=== PATIENT | female | born 1980 | race Two or more races ===

== ENCOUNTER → 2021-12-30 | Outpatient (CLI) | payer OTHER ==
[~2021-12-30] MED LIST: IOHEXOL 300 MG/ML 75 ML VIAL. IV ONE; IOHEXOL 300 MG/ML 75 ML VIAL. ONE
--- NOTE | 2021-12-30 09:42 | RAD ---
EXAMINATION: CT ABDOMEN+PELVIS WO+W (CT ABDOMEN/PELVIS WITHOUT AND WITH IV CONTRAST, INCLUDING EXCRET ORY PHASE IMAGING (CT UROGRAM)) CLINICAL HISTORY: Hematuria. TECHNIQUE: CT urogram protocol including unenhanced, renal parenchymal phase and excretory phase laron l imaging was obtained following intravenous contrast. CT Dose Reduction Employed: One or more of the following individualized dose reduction techniques wer e utilized for this examination: 1. Automated exposure control 2. Adjustment of the mA and/or kV ac cording to patient size 3. Use of iterative reconstruction technique. COMPARISON: None FINDINGS: KIDNEYS AND URINARY TRACT: Right: No renal calculi or mass. Opacified calyces, renal pelvis, and ureter unremarkable with no travis dence of dilation, filling defect, or stricture. Left: No renal calculi or mass. Opacified calyces, renal pelvis, and ureter unremarkable with no evid ence of dilation, filling defect, or stricture. Bladder: Minimally filled urinary bladder suboptimally evaluated. There is diffuse prominence of the bladder wall, and this may simply be related to underdistention but cystitis cannot be excluded. No e vidence of bladder calculus or mass. ABDOMEN AND PELVIS: Visualized heart and lungs unremarkable. Nonspecific subcentimeter hypoenhancing focus in the superior right hepatic lobe, too small to adequa tely characterize. Gallbladder, pancreas, spleen, and adrenal glands unremarkable. Uterus and ovaries unremarkable on limited evaluation. No bowel dilation or definite wall thickening. Appendix not definitively visualized. No abdominal aortic or iliac artery aneurysm. No evidence of acute osseous abnormality. Right pelvic fixation hardware with persistent mildly displ aced fracture extending through the posterior ilium and ischium. IMPRESSION: Nonspecific diffuse bladder wall prominence as described, suboptimally evaluated in the underdistende d urinary bladder, cannot exclude cystitis. No urolithiasis or renal mass. Right pelvic fixation hardware with persistent mildly displaced fracture as described. Recommend comp arison with old studies if available to assess stability. Electronically signed by: Zackary Agee DO (12/30/2021 9:39 AM) [facility]
== END ==
LOC: CT 06:00
PROVIDERS: ATTEND Specialist
DX: S32.89XD Fracture of other parts of pelvis, subsequent encounter for fracture with routine healing (principal); R31.1 Benign essential microscopic hematuria; Z96.698 Presence of other orthopedic joint implants; X58.XXXD Exposure to other specified factors, subsequent encounter
CPT/HCPCS: 74178; Q9967